=== PATIENT | female | born 1970 | race Caucasian/White ===

== ENCOUNTER 2019-11-20 11:11 | Emergency (ER) | payer BC, SELFPAY ==
[2019-11-20 11:12] VITALS: BP 126/81; PULSE 92; RESP 20; TEMP 36.9; O2SAT 100; BMI 28.3
--- NOTE | 2019-11-20 11:29 | ED.DCSUM_ITS ---
History of Present Illness Chief Complaint: Nausea/Vomiting/Diarrhea Informant: Patient, Significant Other Onset: Yesterday Context: Sudden Onset Timing: Continuous Quality: Nausea, vomiting and diarrhea Location: Home Current Severity: Moderate Maximum Severity: Moderate Worsened by: Nothing Relieved by: Nothing Associated Symptoms: Lightheaded and weakness Narrative: Patient is a 49-year-old woman with history of depression anxiety who presents with nausea and vomiting started yesterday. 11 family members were ill with GI symptoms prior to the onset of her illness. She complains she has a headache. She denies fever or shaking chills. She denies change in vision, double vision or loss of vision. She denies ringing or ears or decreased hearing. She denies URI symptoms. She denies hematemesis, melena medication. She denies dysuria, frequency, urgency or hematuria. She denies rash. Prior similar symptoms: No Recent Illness/Hospitalization: No - Past Medical History (1) History of depression and anxiety Status: Acute Past Medical History - Allergies and Home Meds Allergies/Adverse Reactions: Allergies No Known Allergies Allergy (Verified 11/20/19 11:14) Primary Care Physician: Sammie Mann,Out of [Primary Care Provider] - Prior records reviewed: Yes Lives: Spouse/ Significant Other Smoking Status: Never smoker Alcohol: None Drugs: None Review of Systems General: Reports: Malaise. Denies: Chills, Fever, Sweats Eyes: Denies: Visual changes - bilaterally, Blurred Vision - bilaterally, Diplopia Cardiovascular: Denies: Chest pain, Palpitations Respiratory: Denies: Dyspnea, Cough, Dyspnea on exertion Gastrointestinal: Reports: Abdominal pain, Nausea, Vomiting, Diarrhea. Denies: Constipation, Melena, Hematochezia, -, - Genitourinary: Denies: Dysuria, Hematuria, Frequency Musculoskeletal: Reports: Myalgias. Denies: Arthralgias, Neck pain, Back pain, Swelling, Extremity Pain Skin: Denies: Rash, Wounds Neurological: Reports: Headache. Denies: Weakness, Parasthesia, Numbness, -, - Hematologic: Denies: Easy bruising, Easy bleeding Physical Exam Vital Signs/Narrative: Vital Signs Temp Pulse Resp BP Pulse Ox 11/20/19 11:12 98.4 F 92 20 H 126/81 H 100 Inital Vital Signs reviewed: Yes General: Well nourished, Well developed, - - Patient appears ill. Head: Normocephalic, Atraumatic Eyes: Perrl, EOMI. Negative for: Pale conjunctiva, Scleral icterus ENT: No rhinorrhea, Dry mucous membranes Neck: Supple, Nontender, No lymphadenopathy, No JVD Cardiovascular: Regular rate, Regular rhythm, No murmurs, Normal S1, Normal S2 Respiratory: No distress, CTA bilaterally, Chest nontender Abdomen: Soft, Nontender, Nondistended, Normal bowel sounds, No masses. Negative for: Rebound tenderness, Hyperactive bowel sounds Extremities: Nontender, No edema Skin: No rash, No Trauma, Pallor. Negative for: Cyanosis, Diaphoresis, Jaundice Neurological: Alert, Oriented x3, Cranial nerves II-XII grossly intact, Normal Strength, Normal Sensation Psychological: Normal affect Diagnostic/Tx/Re-eval - Medical Decision Making History and physical exam is consistent with dehydration secondary to viral gastroenteritis. 1 L of normal saline was ordered and 4 mg of Zofran. Since onset is less than 24 hours laboratory tests are not indicated especially since she has no history of diabetes or renal dysfunction. Patient was reassessed at 1345. Her nausea is improved. She has had no vomiting or diarrhea in the department. She still complains of headache. Will treat headache with IV Toradol. And p.o. challenge. Passed p.o. challenge. Only request was prescription for Zofran. ED Disposition - Plan for ED Patient: Disposition: Home or Assisted Living Diagnosis: Abdominal pain, vomiting, and diarrhea, Mild dehydration, Cephalgia Instructions: VOMITING AND DIARRHEA, Nonspecific (Adult) Prescriptions: Ondansetron [Zofran Odt] 4 mg PO Q8H PRN PRN #10 tab PRN Reason: Nausea Prescription Printed Referrals: [facility] Doctor,Out of [Primary Care Provider] - 3-5 Days if not improving
[2019-11-20] MEDS: 0.9% Normal Saline 1,000 ML 1000 ML IV (11:41)
[2019-11-20] MEDS: Ondansetron 4 MG/2 ML Vial IV (11:42)
[2019-11-20] MEDS: Ketorolac 15 MG/ML Vial IV (14:15)
[2019-11-20 14:20] VITALS: RESP 16
[2019-11-20 14:59] VITALS: BP 108/77; PULSE 62; RESP 15; O2SAT 98
== END 2019-11-20 15:00 | disposition home or self-care (01) ==
PROVIDERS: Emergency Provider Emergency Medicine
DX: R10.9 Unspecified abdominal pain (principal); R11.10 Vomiting, unspecified; R19.7 Diarrhea, unspecified; E86.0 Dehydration; R51 Headache; F32.9 Major depressive disorder, single episode, unspecified; F41.9 Anxiety disorder, unspecified; Z79.899 Other long term (current) drug therapy
CPT/HCPCS: 96361; 96374; 96375; 99283; J7030; A4216; J2405